=== PATIENT | female | born 1975 | race American Indian/Alaskan Native ===

== ENCOUNTER 2020-07-07 12:11 | Emergency (ER) | payer SELFPAY ==
[2020-07-07 12:57] VITALS: BP 132/87
--- NOTE | 2020-07-07 13:38 | Emergency Department Report ---
ED Female HPI - General Chief complaint: Urogenital-Female Stated complaint: UTI Source: patient Mode of arrival: Ambulatory Limitations: No Limitations - History of Present Illness Initial comments: 45-year-old female presents to the emergency room for lower abdominal pressure with dysuria since yesterday. Patient denies any fever chills no nausea no vomiting no abdominal pain. Patient states her last menstrual period was 06/25/2020. Patient reports urinary frequency urgency. MD Complaint: dysuria Onset/Timin -: days(s) Location: suprapubic Severity scale (0 -10): 3 - Related Data Previous Rx's Medication Instructions Recorded Last Taken Type Amoxicillin/Potassium Clav 1 each PO BID 7 Days #14 tablet 05/16/20 Unknown Rx [Augmentin 875-125 Tablet] Ibuprofen [Motrin 800 MG tab] 800 mg PO Q8HR PRN #30 tablet 05/16/20 Unknown Rx Azithromycin [Zithromax Z-JAYNA] 250 mg PO DAILY 5 Days #6 tablet 05/27/20 Unknown Rx Cefdinir 300 mg PO BID 10 Days #20 capsule 05/27/20 Unknown Rx Ofloxacin 0.3% [Floxin 0.3% Otic] 10 drops AD DAILY 7 Days #1 bottle 05/27/20 Unknown Rx Nitrofurantoin [place]/M-Cryst 100 mg PO Q12HR 10 Days #20 capsule 07/07/20 Unknown Rx [Macrobid CAP] Phenazopyridine [Pyridium] 100 mg PO TID #9 tab 07/07/20 Unknown Rx Allergies Allergy/AdvReac Type Severity Reaction Status Date / Time Sulfa (Sulfonamide Allergy Rash Verified 05/27/20 11:59 Antibiotics) ED Review of Systems ROS: Stated complaint: UTI Other details as noted in HPI ED Past Medical Hx - Past Medical History Hx Psychiatric Treatment: Yes (anxiety) - Surgical History Hx Cholecystectomy: Yes - Social History Smoking Status: Current Every Day Smoker Substance Use Type: None - Medications Home Medications: Home Medications Medication Instructions Recorded Confirmed Last Taken Type Amoxicillin/Potassium Clav 1 each PO BID 7 Days #14 tablet 05/16/20 Unknown Rx [Augmentin 875-125 Tablet] Ibuprofen [Motrin 800 MG tab] 800 mg PO Q8HR PRN #30 tablet 05/16/20 Unknown Rx Azithromycin [Zithromax Z-JAYNA] 250 mg PO DAILY 5 Days #6 tablet 05/27/20 Unkn own Rx Cefdinir 300 mg PO BID 10 Days #20 capsule 05/27/20 Unknown Rx Ofloxacin 0.3% [Floxin 0.3% Otic] 10 drops AD DAILY 7 Days #1 bottle 05/27/20 Unknown Rx Nitrofurantoin [place]/M-Cryst 100 mg PO Q12HR 10 Days #20 capsule 07/07/20 Unknown Rx [Macrobid CAP] Phenazopyridine [Pyridium] 100 mg PO TID #9 tab 07/07/20 Unknown Rx ED Physical Exam - General Limitations: No Limitations General appearance: alert, in no apparent distress - Head Head exam: Present: atraumatic, normocephalic - Eye Eye exam: Present: normal appearance - ENT ENT exam: Present: mucous membranes moist - Neck Neck exam: Present: normal inspection - Respiratory Respiratory exam: Present: normal lung sounds bilaterally. Absent: respiratory distress - Cardiovascular Cardiovascular Exam: Present: regular rate, normal rhythm. Absent: systolic murmur, diastolic murmur, rubs, gallop - GI/Abdominal GI/Abdominal exam: Present: soft, normal bowel sounds - Extremities Exam Extremities exam: Present: normal inspection - Back Exam Back exam: Present: normal inspection - Neurological Exam Neurological exam: Present: alert, oriented X3 - Psychiatric Psychiatric exam: Present: normal affect, normal mood - Skin Skin exam: Present: warm, dry, intact, normal color. Absent: rash ED Course Vital Signs 07/07/20 12:54 Temperature 98 F Pulse Rate 106 H Respiratory 20 Rate Blood Pressure 132/87 O2 Sat by Pulse 98 Oximetry ED Medical Decision Making - Lab Data Laboratory Tests 07/07/20 13:36 Urine Color Yellow Urine Turbidity Cloudy Urine pH 5.0 Ur Specific [place] 1.021 Urine Protein 100 mg/dl Urine Glucose (UA) 50 Urine Ketones Tr Urine Blood Lg Urine Nitrite Neg Urine Bilirubin Neg Urine Urobilinogen < 2.0 Ur Leukocyte Esterase Lg Urine WBC (Auto) 85.0 H Urine RBC (Auto) 158.0 U Epithel Cells (Auto) 23.0 H Urine Bacteria (Auto) 1+ Ur Transition Epith Cell 3 Urine Mucus 3+ Urine HCG, Qual Negative - Medical Decision Making 45-year-old female presents to the emergency room for lower abdominal pressure with dysuria since yesterday. Patient denies any fever chills no nausea no vomiting no abdominal pain. Patient states her last menstrual period was 06/25/2020. Patient reports urinary frequency urgency. UA and hCG sent. Critical care attestation.: If time is entered above; I have spent that time in minutes in the direct care of this critically ill patient, excluding procedure time. ED Disposition Clinical Impression: UTI (urinary tract infection) Disposition: - TO HOME OR SELFCARE Is pt being admited?: No Does the pt Need Aspirin: No Condition: Stable Instructions: Urinary Tract Infection in Women (ED) Additional Instructions: Urine shows a urinary tract infection. Complete antibiotics increase your fluid intake. Follow-up with the [facility] or primary care provider in the next 3 to 5 days to repeat urine. Prescriptions: Nitrofurantoin [place]/M-Cryst [Macrobid CAP] 100 mg PO Q12HR 10 Days #20 capsule Phenazopyridine [Pyridium] 100 mg PO TID #9 tab Referrals: PRIMARY CAREMD [Primary Care Provider] - 3-5 Days [facility] [Provider Group] - 3-5 Days Forms: Work/School Release Form(ED)
[2020-07-07 13:47] LABS: Bacteria,Urine 1+ /HPF (Negative); Bilirubin,Urine NEG (Negative); Blood,Urine LG (Negative); Color,Urine Yellow (Yellow); Mucus,Urine 3+ /HPF; Urobilinogen,Urine < 2.0 mg/dL (<2.0)
[2020-07-07 13:48] LABS: HCG Qualitative,Urine Negative (Negative)
== END 2020-07-07 14:39 | disposition home or self-care (01) ==
LOC: ED 12:11
DX: N39.0 Urinary tract infection, site not specified (principal); I10 Essential (primary) hypertension; F17.200 Nicotine dependence, unspecified, uncomplicated; Z90.49 Acquired absence of other specified parts of digestive tract; Z79.899 Other long term (current) drug therapy; Z88.2 Allergy status to sulfonamides
CPT/HCPCS: 81001; 81025; 87086; 99283

== ENCOUNTER 2020-09-20 18:10 | Emergency (ER) | payer MEDICAID ==
[2020-09-20 19:02] VITALS: BP 141/86
[2020-09-20] MEDS ORDERED: predniSONE 20 MG TAB PO ONE (20:45)
[2020-09-20] MEDS ORDERED: AMOXICILLIN/K CLAV 875/125MG TAB PO ONE (20:45)
[2020-09-20] MEDS ORDERED: ACETAMINOPHEN 500 MG TAB PO ONE (20:45)
--- NOTE | 2020-09-20 20:50 | Emergency Department Report ---
ED General Adult HPI - General Chief complaint: Earache Stated complaint: SINUS INFECTION/RT EAR PAIN Source: patient Mode of arrival: Ambulatory Limitations: No Limitations - History of Present Illness Initial comments: Patient is a 45-year-old white female with no past medical history presents to the ED with complaint of acute onset persistent nasal and sinus congestion, fron janice and maxillary sinus pressure and headache, right ear pain with mild dry cough for the last 2 days. Patient states that she has been taking [id number] medication with no relief. Patient states that no one else at home is had similar symptoms. Patient denies dizziness, syncope, sore throat, nausea, vomiting, diarrhea, abdominal pain, dysuria, urinary frequency and urgency, chest pain or shortness of breath, fever and chills. MD Complaint: right ear pain; nasal and sinus congestion; sinus pressure and headache -: Sudden, days(s) (2) Location: head, face Radiation: non-radiation Severity scale (0 -10): 6 Quality: aching, sharp, constant Consistency: constant Improves with: none Worsens with: none Associated Symptoms: denies other symptoms, cough, headaches. denies: confusion, chest pain, diaphoresis, fever/chills, loss of appetite, malaise, nausea/vomiting, rash, seizure, shortness of breath, syncope, weakness, other Treatments Prior to Arrival: none - Related Data Previous Rx's Medication Instructions Recorded Last Taken Type Ibuprofen [Motrin 800 MG tab] 800 mg PO Q8HR PRN #30 tablet 05/16/20 Unknown Rx Azithromycin [Zithromax Z-JAYNA] 250 mg PO DAILY 5 Days #6 tablet 05/27/20 Unknown Rx Cefdinir 300 mg PO BID 10 Days #20 capsule 05/27/20 Unknown Rx Nitrofurantoin [place]/M-Cryst 100 mg PO Q12HR 10 Days #20 capsule 07/07/20 Unknown Rx [Macrobid CAP] Phenazopyridine [Pyridium] 100 mg PO TID #9 tab 07/07/20 Unknown Rx Amoxicillin/Potassium Clav 1 each PO Q12H 7 Days #20 tablet 09/20/20 Unknown Rx [Augmentin 875-125 Tablet] Cetirizine HCl [Zyrtec 10mg tab] 10 mg PO DAILY #30 tablet 09/20/20 Unknown Rx Ibuprofen [Motrin] 600 mg PO Q8H PRN #24 tablet 09/20/20 Unknown Rx Ofloxacin 0.3% [Floxin 0.3% Otic] 10 drops AD DAILY 7 Days #1 bottle 09/20/20 Unknown Rx predniSONE [Deltasone] 40 mg PO QDAY #10 tab 09/20/20 Unknown Rx Allergies Allergy/AdvReac Type Severity Reaction Status Date / Time Sulfa (Sulfonamide Allergy Rash Verified 05/27/20 11:59 Antibiotics) ED Review of Systems ROS: Stated complaint: SINUS INFECTION/RT EAR PAIN Other details as noted in HPI Constitutional: denies: chills, fever Eyes: denies: eye pain, eye discharge, vision change ENT: ear pain (Right ear pain), congestion, other (Frontal sinus pressure). denies: throat pain Respiratory: cough (Mild dry cough). denies: shortness of breath, wheezing Cardiovascular: denies: chest pain, palpitations Endocrine: no symptoms reported Gastrointestinal: denies: abdominal pain, nausea, vomiting, diarrhea Genitourinary: denies: urgency, dysuria, discharge Musculoskeletal: denies: back pain, joint swelling, arthralgia Skin: denies: rash, lesions Neurological: headache. denies: weakness, paresthesias Psychiatric: denies: anxiety, depression Hematological/Lymphatic: denies: easy bleeding, easy bruising ED Past Medical Hx - Past Medical History Hx Psychiatric Treatment: Yes (anxiety) - Surgical History Hx Cholecystectomy: Yes - Social History Smoking Status: Current Every Day Smoker Substance Use Type: None - Medications Home Medications: Home Medications Medication Instructions Recorded Confirmed Last Taken Type Ibuprofen [Motrin 800 MG tab] 800 mg PO Q8HR PRN #30 tablet 05/16/20 Unknown Rx Azithromycin [Zithromax Z-JAYNA] 250 mg PO DAILY 5 Days #6 tablet 05/27/20 Unknown Rx Cefdinir 300 mg PO BID 10 Days #20 capsule 05/27/20 Unknown Rx Nitrofurantoin [place]/M-Cryst 100 mg PO Q12HR 10 Days #20 capsule 07/07/20 Unknown Rx [Macrobid CAP] Phenazopyridine [Pyridium] 100 mg PO TID #9 tab 07/07/20 Unknown Rx Amoxicillin/Potassium Clav 1 each PO Q12H 7 Days #20 tablet 09/20/20 Unknown Rx [Augmentin 875-125 Tablet] Cetirizine HCl [Zyrtec 10mg tab] 10 mg PO DAILY #30 tablet 09/20/20 Unknown Rx Ibuprofen [Motrin] 600 mg PO Q8H PRN #24 tablet 09/20/20 Unknown Rx Ofloxacin 0.3% [Floxin 0.3% Otic] 10 drops AD DAILY 7 Days #1 bottle 09/20/20 Unknown Rx predniSONE [Deltasone] 40 mg PO QDAY #10 tab 09/20/20 Unknown Rx ED Physical Exam - General Limitations: No Limitations General appearance: alert, in no apparent distress - Head Head exam: Present: atraumatic, normocephalic, normal inspection - Eye Eye exam: Present: normal appearance, PERRL, EOMI Pupils: Present: normal accommodation - ENT ENT exam: Present: mucous membranes moist, TM's normal bilaterally, normal external ear exam, other (Grossly congested nasal passages; palpable maxillary sinus tenderness; mild erythematous bulging right tympanic membrane with effusion) - Neck Neck exam: Present: normal inspection, full ROM. Absent: tenderness, meningismus, lymphadenopathy, thyromegaly - Respiratory Respiratory exam: Present: normal lung sounds bilaterally. Absent: respiratory distress, wheezes, rales, rhonchi, chest wall tenderness, accessory muscle use, prolonged expiratory - Cardiovascular Cardiovascular Exam: Present: regular rate, normal rhythm, normal heart sounds. Absent: systolic murmur, diastolic murmur, rubs, gallop - GI/Abdominal GI/Abdominal exam: Present: soft, normal bowel sounds. Absent: tenderness, guarding, rebound, hyperactive bowel sounds, hypoactive bowel sounds, organomegaly - Extremities Exam Extremities exam: Present: normal inspection, full ROM, normal capillary refill. Absent: tenderness, pedal edema, joint swelling - Back Exam Back exam: Present: normal inspection, full ROM. Absent: tenderness, CVA tenderness (R), CVA tenderness (L), muscle spasm, paraspinal tenderness - Neurological Exam Neurological exam: Present: alert, oriented X3, CN II-XII intact, normal gait, reflexes normal - Psychiatric Psychiatric exam: Present: normal affect, normal mood - Skin Skin exam: Present: warm, dry, intact, normal color. Absent: rash ED Course Vital Signs 09/20/20 19:01 Temperature 98.1 F Pulse Rate 73 Respiratory 18 Rate Blood Pressure 141/86 [Right] O2 Sat by Pulse 98 Oximetry ED Medical Decision Making - Medical Decision Making This is a 45-year-old white female with no past medical history presents to the ED with complaint of acute onset persistent nasal and sinus congestion, frontal and maxillary sinus pressure and headache, right ear pain with mild dry cough for the last 2 days. Patient states that she has been taking [id number] medication with no relief. Patient states that no one else at home is had similar symptoms. In the ED, patient is alert and oriented x3 and is not in distress. Patient was treated for pain in the ED also given initial oral antibiotics in the ED. Patient was discharged home on pain medications and antibiotics and advised follow-up with her primary care physician in 5 to 7 days for reevaluation or return to the ED immediately if symptoms get worse. - Differential Diagnosis Sinusitis; URI; otitis media; Critical care attestation.: If time is entered above; I have spent that time in minutes in the direct care of this critically ill patient, excluding procedure time. ED Disposition Clinical Impression: Acute upper respiratory infection, Acute otitis media with effusion of right ear, Acute non-recurrent maxillary sinusitis Disposition: TO HOME OR SELFCARE Is pt being admited?: No Does the pt Need Aspirin: No Condition: Stable Instructions: Sinusitis, Adult, [id number], Upper Respiratory Infection, Adult, [id number], Otitis Media, Adult, [id number] Additional Instructions: Take medication with food, drink plenty of fluids and follow-up with your primary care physician in 5 to 7 days for reevaluation. Return to the ED immediately if symptoms get worse. Prescriptions: Amoxicillin/Potassium Clav [Augmentin 875-125 Tablet] 1 each PO Q12H 7 Days #20 tablet predniSONE [Deltasone] 40 mg PO QDAY #10 tab Ofloxacin 0.3% [Floxin 0.3% Otic] 10 drops AD DAILY 7 Days #1 bottle Ibuprofen [Motrin] 600 mg PO Q8H PRN #24 tablet PRN Reason: Pain Cetirizine HCl [Zyrtec 10mg tab] 10 mg PO DAILY #30 tablet Referrals: [facility] [Provider Group] - 3-5 Days Time of Disposition: 20:48 Print Language: LIBYAN
== END 2020-09-20 21:15 | disposition home or self-care (01) ==
LOC: ED 18:10
DX: J06.9 Acute upper respiratory infection, unspecified (principal); H65.191 Other acute nonsuppurative otitis media, right ear; J01.00 Acute maxillary sinusitis, unspecified; F41.9 Anxiety disorder, unspecified; F17.200 Nicotine dependence, unspecified, uncomplicated
CPT/HCPCS: 99282; J7512

== ENCOUNTER 2020-09-26 22:00 | Emergency (ER) | payer SELFPAY | END 2020-09-27 03:22 | disposition left against medical advice (07) | LOC: ED 22:00 | DX: F41.9 Anxiety disorder, unspecified (principal); Z53.21 Procedure and treatment not carried out due to patient leaving prior to being seen by health care provider ==

== ENCOUNTER 2020-09-27 10:42 | Emergency (ER) | payer SELFPAY ==
[2020-09-27 10:59] VITALS: BP 147/99
--- NOTE | 2020-09-27 12:36 | Emergency Department Report ---
Chief Complaint: Anxiety Stated Complaint: PANIC ATTACK, ANXIETY Time Seen by Provider: 09/27/20 12:33 - HPI History of Present Illness: Patient is a 45-year-old female presents emergency room with complaints of anxiety for 4 days. states she has had some increased stress and just feels like her thoughts are racing. She states that she previously used to take Paxil but has not been on it for a year. She states that she is also taken Atarax in the past. She does not have a primary care doctor. She is not seeing a psychologist or psychiatrist. denies any CP, SOB, fever, cough, numbness, weakness, any other symptoms. She denies any other past medical history. She has an allergy to sulfa. Last menstrual cycle 09/14/2020. Initial triage vitals with mild tachycardia, on repeat has improved to normal without intervention On exam: Non toxic appearing, no acute distress atraumatic, normocephalic normal appearance of the eyes, EOMI, no periorbital edema or ecchymosis moist mucus membranes No respiratory distress, no accessory muscle use A&O x4, no focal neuro deficit Normal affect, normal mood skin is warm, dry, intact Patient is presenting for anxiety She has no SI, no HI, no hallucinations Patient is alert and oriented x4 she has normal affect and mood, she appropriately answers questions, she makes good eye contact, she is in no distress She has no signs of acute psychosis Patient does not meet 1013 criteria Patient will be given outpatient resources for mental health and primary care doctor Discussed very strict return precautions with patient Patient given the [place] crisis line Medical screening examination performed and there is no threat to life or limb at this time - Exam Vital Signs: Vital Signs 09/27/20 10:58 Temperature 97.7 F Pulse Rate 102 H Respiratory 20 Rate Blood Pressure 147/99 O2 Sat by Pulse 100 Oximetry MSE screening note: Focused history and physical exam performed. ED Disposition for MSE Clinical Impression: Anxiety Disposition: Z-07 MED SCREENING EXAM-LEFT Is pt being admited?: No Does the pt Need Aspirin: No Condition: Stable Instructions: Managing Anxiety, Adult Additional Instructions: Please follow-up with a primary care doctor. Please follow-up with the [facility]. Please practice coping mechanisms for anxiety such as meditating, watching videos, taking a walk, practice breathing. Return to emergency room immediately for any new or worsening symptoms. If began having thoughts of plain or yourself or others please return to emergency room immediately or call 911 or the [place] crisis line [phone] Referrals: REGINALDO CRUZ MD [Staff Physician] - 2-3 Days [facility] [Provider Group] - 2-3 Days [facility], [LAB/CONTRACT] - 2-[address] [facility] [Outside] - 2-3 Days Time of Disposition: 12:34 Print Language: WELSH
== END 2020-09-27 12:46 | disposition left against medical advice (07) ==
LOC: ED 10:42
DX: F41.0 Panic disorder [episodic paroxysmal anxiety] (principal); Z53.21 Procedure and treatment not carried out due to patient leaving prior to being seen by health care provider

== ENCOUNTER 2021-07-27 08:39 | Emergency (ER) | payer MEDICAID, OTHER ==
[2021-07-27 08:54] VITALS: BP 135/85
--- NOTE | 2021-07-27 09:07 | Emergency Department Report ---
ED ENT HPI - General Chief complaint: Upper Respiratory Infection Stated complaint: SINUS INFECTION Time Seen by Provider: 07/27/21 08:58 Source: patient Mode of arrival: Ambulatory Limitations: No Limitations - History of Present Illness Initial comments: The patient was evaluated in the emergency department for symptoms described in the history of present illness. He/she was evaluated in the context of the global COVID-19 pandemic, which necessitated consideration that the patient might be at risk for infection with the virus that causes COVID-19. Institutional protocols and algorithms that pertain to the evaluation of patients at risk for COVID-19 are in a state of rapid change based on information released by regulatory bodies including the CDC and federal and state organizations. These policies and algorithms were followed during the patient's care in the emergency department. Please note that these policies, procedures and recommendations changed on a rapid basis. 46-year-old female presents to the emergency room reporting she thinks she has a sinus infection. She states that she has frontal pressure clear fluid postnasal drip for 4 days. Patient states she is taken [id number] Advil sinus. States that she does not have a primary care provider. Reports she has an allergy to sulfur. Denies any headache no shortness of breath or chest pain. Onset/Timin -: days(s) Severity scale (0 -10): 4 Quality: other (Pressure) Consistency: constant Improves with: none Worsens with: none Context-Epistaxis: history of similar Associated Symptoms: rhinorrhea, other (Postnasal drip) - Related Data Previous Rx's Medication Instructions Recorded Last Taken Type Ibuprofen [Motrin 800 MG tab] 800 mg PO Q8HR PRN #30 tablet 05/16/20 Unknown Rx Azithromycin [Zithromax Z-JAYNA] 250 mg PO DAILY 5 Days #6 tablet 05/27/20 Unknown Rx Cefdinir 300 mg PO BID 10 Days #20 capsule 05/27/20 Unknown Rx Nitrofurantoin Archer/M-Cryst 100 mg PO Q12HR 10 Days #20 capsule 07/07/20 Unknown Rx [Macrobid CAP] Phenazopyridine [Pyridium] 100 mg PO TID #9 tab 07/07/20 Unknown Rx Amoxicillin/Potassium Clav 1 each PO Q12H 7 Days #20 tablet 09/20/20 Unknown Rx [Augmentin 875-125 Tablet] Cetirizine HCl [Zyrtec 10mg tab] 10 mg PO DAILY #30 tablet 09/20/20 Unknown Rx Ibuprofen [Motrin] 600 mg PO Q8H PRN #24 tablet 09/20/20 Unknown Rx Ofloxacin 0.3% [Floxin 0.3% Otic] 10 drops AD DAILY 7 Days #1 bottle 09/20/20 Unknown Rx predniSONE [Deltasone] 40 mg PO QDAY #10 tab 09/20/20 Unknown Rx Allergies Allergy/AdvReac Type Severity Reaction Status Date / Time Sulfa (Sulfonamide Allergy Rash Verified 09/27/20 10:56 Antibiotics) ED Dental HPI - General Chief complaint: Upper Respiratory Infection Stated complaint: SINUS INFECTION Time Seen by Provider: 07/27/21 08:58 Source: patient Mode of arrival: Ambulatory Limitations: No Limitations - Related Data Previous Rx's Medication Instructions Recorded Last Taken Type Ibuprofen [Motrin 800 MG tab] 800 mg PO Q8HR PRN #30 tablet 05/16/20 Unknown Rx Azithromycin [Zithromax Z-JAYNA] 250 mg PO DAILY 5 Days #6 tablet 05/27/20 Unknown Rx Cefdinir 300 mg PO BID 10 Days #20 capsule 05/27/20 Unknown Rx Nitrofurantoin Archer/M-Cryst 100 mg PO Q12HR 10 Days #20 capsule 07/07/20 Unknown Rx [Macrobid CAP] Phenazopyridine [Pyridium] 100 mg PO TID #9 tab 07/07/20 Unknown Rx Amoxicillin/Potassium Clav 1 each PO Q12H 7 Days #20 tablet 09/20/20 Unknown Rx [Augmentin 875-125 Tablet] Cetirizine HCl [Zyrtec 10mg tab] 10 mg PO DAILY #30 tablet 09/20/20 Unknown Rx Ibuprofen [Motrin] 600 mg PO Q8H PRN #24 tablet 09/20/20 Unknown Rx Ofloxacin 0.3% [Floxin 0.3% Otic] 10 drops AD DAILY 7 Days #1 bottle 09/20/20 Unknown Rx predniSONE [Deltasone] 40 mg PO QDAY #10 tab 09/20/20 Unknown Rx Allergies Allergy/AdvReac Type Severity Reaction Status Date / Time Sulfa (Sulfonamide Allergy Rash Verified 09/27/20 10:56 Antibiotics) ED Review of Systems ROS: Stated complaint: SINUS INFECTION Other details as noted in HPI Comment: All other systems reviewed and negative ED Past Medical Hx - Past Medical History Previous Medical History?: Yes Hx Psychiatric Treatment: Yes (anxiety) - Surgical History Hx Cholecystectomy: Yes - Social History Smoking Status: Current Every Day Smoker Substance Use Type: None - Medications Home Medications: Home Medications Medication Instructions Recorded Confirmed Last Taken Type Ibuprofen [Motrin 800 MG tab] 800 mg PO Q8HR PRN #30 tablet 05/16/20 Unknown Rx Azithromycin [Zithromax Z-JAYNA] 250 mg PO DAILY 5 Days #6 tablet 05/27/20 Unknown Rx Cefdinir 300 mg PO BID 10 Days #20 capsule 05/27/20 Unknown Rx Nitrofurantoin Archer/M-Cryst 100 mg PO Q12HR 10 Days #20 capsule 07/07/20 Unknown Rx [Macrobid CAP] Phenazopyridine [Pyridium] 100 mg PO TID #9 tab 07/07/20 Unknown Rx Amoxicillin/Potassium Clav 1 each PO Q12H 7 Days #20 tablet 09/20/20 Unknown Rx [Augmentin 875-125 Tablet] Cetirizine HCl [Zyrtec 10mg tab] 10 mg PO DAILY #30 tablet 09/20/20 Unknown Rx Ibuprofen [Motrin] 600 mg PO Q8H PRN #24 tablet 09/20/20 Unknown Rx Ofloxacin 0.3% [Floxin 0.3% Otic] 10 drops AD DAILY 7 Days #1 bottle 09/20/20 Unknown Rx predniSONE [Deltasone] 40 mg PO QDAY #10 tab 09/20/20 Unknown Rx ED Physical Exam - General Limitations: No Limitations General appearance: alert, in no apparent distress - Head Head exam: Present: atraumatic, normocephalic - Eye Eye exam: Present: normal appearance - ENT ENT exam: Present: normal exam, mucous membranes moist, normal external ear exam - Neck Neck exam: Present: normal inspection, full ROM - Respiratory Respiratory exam: Present: normal lung sounds bilaterally. Absent: respiratory distress - Cardiovascular Cardiovascular Exam: Present: regular rate, normal rhythm. Absent: systolic murmur, diastolic murmur, rubs, gallop - GI/Abdominal GI/Abdominal exam: Present: soft, normal bowel sounds - Extremities Exam Extremities exam: Present: normal inspection - Back Exam Back exam: Present: normal inspection - Neurological Exam Neurological exam: Present: alert, oriented X3, normal gait - Psychiatric Psychiatric exam: Present: normal affect, normal mood - Skin Skin exam: Present: warm, dry, intact, normal color. Absent: rash ED Course Vital Signs 07/27/21 08:51 Temperature 98.8 F Pulse Rate 102 H Respiratory 16 Rate Blood Pressure 135/85 [Left] O2 Sat by Pulse 97 Oximetry ED Medical Decision Making - Medical Decision Making 46-year-old female presents to the emergency room reporting she thinks she has a sinus infection. She states that she has frontal pressure clear fluid postnasal drip for 4 days. Patient states she is taken [id number] Advil sinus. States that she does not have a primary care provider. Reports she has an allergy to sulfur. Denies any headache no shortness of breath or chest pain. Discussed with patient that she needs to try conservative measures such as Flonase Zyrtec-D, Advil Tylenol increase water intake advance diet as tolerated. Critical care attestation.: If time is entered above; I have spent that time in minutes in the direct care of this critically ill patient, excluding procedure time. ED Disposition Clinical Impression: Allergic rhinitis Disposition: 01 HOME / SELF CARE / HOMELESS Is pt being admited?: No Does the pt Need Aspirin: No Condition: Stable Instructions: Allergic Rhinitis, Adult, [id number] Additional Instructions: Recommend [id number] Flonase [id number] Zyrtec-D increase your fluid intake Tylenol or ibuprofen as needed for pain. You can also use [id number] normal saline flushes. Follow-up with a primary care provider. Referrals: [facility] [Provider Group] - 3-5 Days Forms: Work/School Release Form(ED) Time of Disposition: 09:07
[2021-07-27] MEDS ORDERED: HYDROmorphone 1 MG/1 ML INJ ONE (23:57)
== END 2021-07-27 09:20 | disposition home or self-care (01) ==
LOC: ED 08:39
DX: J30.9 Allergic rhinitis, unspecified (principal); Z88.2 Allergy status to sulfonamides; F17.200 Nicotine dependence, unspecified, uncomplicated; Z90.49 Acquired absence of other specified parts of digestive tract
CPT/HCPCS: 99281; J1170